=== PATIENT | female | born 1990 | race Two or more races ===

== ENCOUNTER 2016-12-10 14:17 | Emergency (ER) | payer MEDICAID ==
[2016-12-10] MEDS ORDERED: NS 1,000 ML IV ONE (14:26)
--- NOTE | 2016-12-10 14:31 | EDPHY ---
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 She states that she is feeling dizzy. She denies pain. Denies intoxicants use. Denies headache. Denies chest pain. No recent illnesses. No trauma. PRIMARY CARE PROVIDER:Jerald Sotelo REVIEW OF SYSTEMS: A ten point review of systems was performed and is negative with the exception of the items mentioned in the HPI PAST MEDICAL & SURGICAL HISTORY: No pertinent medical or surgical history SOCIAL HISTORY:denies intoxicants use, nonsmoker PHYSICAL EXAM (Prior to examination, patient consented to physical exam, hands were washed and my usual and customary physical exam procedures followed) 1) GENERAL: Well-developed, well-nourished, slow to respond, oriented to person place time. Staring at the floor. Appears to be in no acute distress. 2) HEAD: Normocephalic, atraumatic 3) HEENT: Pupils equal, round, reactive to light bilaterally. Sclera anicteric. No raccoon eyes. No Vines sign. Nasopharynx, oropharynx, clear, no lesions. No rhinorrhea. No otorrhea. Ears bilaterally with normal tympanic membranes. 4) NECK: Full range of motion, no meningeal signs. 5) LUNGS: Clear auscultation bilaterally, no wheezes, no rhonchi, no retractions. 6) HEART: Regular rate and rhythm, no murmur, no heave, no gallop. 7) ABDOMEN: No guarding, no rebound, no focal tenderness, negative McBurney's, negative Valadez's, negative Rovsing's, negative peritoneal sign, 8) MUSCULOSKELETAL: Moving all extremities, no focal areas of tenderness, no obvious trauma. No peripheral edema or discoloration. 9) BACK: No CVA tenderness, no midline vertebral tenderness, no fluctuance, no step-off, no obvious trauma, no visual or palpable abnormality. 10) SKIN: No rash, no petechiae. 11) Psychiatric: Patient is oriented X 3, there is no agitation. DIFFERENTIAL DIAGNOSIS: In no particular order including but not limited to hypoglycemia, infectious process, electrolyte abnormality, head injury and intoxicants. Constitutional: Initial Vital Signs Temperature (C) 36.7 C 12/10/16 14:41 Heart Rate 136 H 12/10/16 14:41 Respiratory Rate 14 12/10/16 14:41 Blood Pressure 146/65 H 12/10/16 14:41 O2 Sat (%) 95 12/10/16 14:41 O2 Delivery Mode Room Air Allergies/Adverse Reactions: No Known Allergies Allergy (Unverified 12/10/16 14:43) Home Medications: Medication Instructions Recorded NK [No Known Home Meds] 12/10/16 Medical Decision Making - Diagnostics Imaging Results: Imaging Impressions Head CT 12/10/16 15:23 Impression: No acute intracranial findings. Findings discussed with [facility] 12/10/2016 at 16:06. ED Course/Re-evaluation: 3:23 p.m.: Patient's mother is at bedside and states that the patient is definitely exhibiting altered mental status. Mother explains at this time that the 2 of them work together and live together. No history of drug use, no unusual ingestion today. I spoke with the patient further and she denies illicit drug use. Discussed with Dr Oconnell in ER. Will obtain CT imaging due to altered mental status, continued tachycardia. 4:04 p.m.: Re-evaluation, discussed her positive toxicology screen positive for marijuana. She is more alert at this time although still slow to respond. She denies intentionally ingesting marijuana product. 4:44 p.m.: Patient informed the nurse that she remembers eating some food from a co-worker "who uses a lot of marijuana" and suspects that there may have been some cannabis in the food 5:30 p.m.: Re-evaluation, sleeping, easily woken, mentating clearly, answering questions appropriately. Heart rate in the 80s. Ambulating with stable steady gait without assistance. She would like to be discharged. She is awake alert oriented person place time events, clear speech pattern, stable steady gait. I think the patient can be discharged. - Data Points Laboratory Results: Laboratory Results 12/10/16 14:25 12/10/16 14:25 12/10/16 12/10/16 12/10/16 15:40 14:25 14:25 WBC RBC Hgb Hct MCV MCH MCHC RDW Plt Count MPV Neut % (Auto) Lymph % (Auto) [place] % (Auto) Eos % (Auto) Baso % (Auto) Nucleat RBC Rel Count Absolute Neuts (auto) Absolute Lymphs (auto) Absolute Monos (auto) Absolute Eos (auto) Absolute Basos (auto) Absolute Nucleated RBC Immature Gran % Immature Gran # Carboxyhemoglobin 1.3 % % (0-1.5) Sodium Potassium Chloride Carbon Dioxide Anion Gap BUN Creatinine Estimated GFR Glucose Calcium Total Bilirubin Conjugated Bilirubin Unconjugated Bilirubin AST ALT Alkaline Phosphatase Total Protein Albumin Beta HCG, Qual NEGATIVE Salicylates Urine Opiates Screen NEGATIVE (NEGATIVE) Acetaminophen Urine Barbiturates NEGATIVE (NEGATIVE) Ur Phencyclidine Scrn NEGATIVE (NEGATIVE) Ur Amphetamine Screen NEGATIVE (NEGATIVE) U Benzodiazepines Scrn NEGATIVE (NEGATIVE) Urine Cocaine Screen NEGATIVE (NEGATIVE) U Marijuana (THC) Screen NON-NEGATIVE H (NEGATIVE) Ethyl Alcohol 12/10/16 12/10/16 14:25 14:25 WBC 8.01 10^3/uL 10^3/uL (3.80-9.50) RBC 4.68 10^6/uL 10^6/uL (4.18-5.33) Hgb 11.0 g/dL L g/dL (12.6-16.3) Hct 35.8 % L % (38.0-47.0) MCV 76.5 fL L fL (81.5-99.8) MCH 23.5 pg L pg (27.9-34.1) MCHC 30.7 g/dL L g/dL (32.4-36.7) RDW 16.0 % H % (11.5-15.2) Plt Count 291 10^3/uL 10^3/uL (150-400) MPV 10.1 fL fL (8.7-11.7) Neut % (Auto) 42.7 % % (39.3-74.2) Lymph % (Auto) 47.6 % H % (15.0-45.0) [place] % (Auto) 5.9 % % (4.5-13.0) Eos % (Auto) 3.0 % % (0.6-7.6) Baso % (Auto) 0.7 % % (0.3-1.7) Nucleat RBC Rel Count 0.0 % % (0.0-0.2) Absolute Neuts (auto) 3.42 10^3/uL 10^3/uL (1.70-6.50) Absolute Lymphs (auto) 3.81 10^3/uL H 10^3/uL (1.00-3.00) Absolute Monos (auto) 0.47 10^3/uL 10^3/uL (0.30-0.80) Absolute Eos (auto) 0.24 10^3/uL 10^3/uL (0.03-0.40) Absolute Basos (auto) 0.06 10^3/uL 10^3/uL (0.02-0.10) Absolute Nucleated RBC 0.00 10^3/uL 10^3/uL (0-0.01) Immature Gran % 0.1 % % (0.0-1.1) Immature Gran # 0.01 10^3/uL 10^3/uL (0.00-0.10) Carboxyhemoglobin Sodium 142 mEq/L mEq/L (134-144) Potassium 3.5 mEq/L mEq/L (3.5-5.2) Chloride 105 mEq/L mEq/L (97-110) Carbon Dioxide 20 mEq/l L mEq/l (22-31) Anion Gap 17 mEq/L H mEq/L (8-16) BUN 18 mg/dL mg/dL (7-23) Creatinine 0.9 mg/dL mg/dL (0.6-1.0) Estimated GFR > 60 Glucose 118 mg/dL H mg/dL (70-100) Calcium 9.6 mg/dL mg/dL (8.5-10.4) Total Bilirubin 0.6 mg/dL mg/dL (0.1-1.4) Conjugated Bilirubin 0.3 mg/dL mg/dL (0.0-0.5) Unconjugated Bilirubin 0.3 mg/dL mg/dL (0.0-1.1) AST 25 IU/L IU/L (14-46) ALT 36 IU/L IU/L (9-52) Alkaline Phosphatase 41 IU/L IU/L (38-126) Total Protein 8.3 g/dL H g/dL (6.3-8.2) Albumin 4.6 g/dL g/dL (3.5-5.0) Beta HCG, Qual Salicylates < 1.0 mg/dL L mg/dL (2.0-20.0) Urine Opiates Screen Acetaminophen < 10 mcg/mL L mcg/mL (10-30) Urine Barbiturates Ur Phencyclidine Scrn Ur Amphetamine Screen U Benzodiazepines Scrn Urine Cocaine Screen U Marijuana (THC) Screen Ethyl Alcohol < 10 mg/dL mg/dL (0-10) Medications Given: Discontinued Medications Sodium Chloride (Ns) 1,000 mls @ 0 mls/hr IV ONCE ONE PRN Reason: Wide Open Stop: 12/10/16 14:27 Last Admin: 12/10/16 14:56 Dose: 1,000 mls Sodium Chloride (Ns) 2,000 mls @ 0 mls/hr IV ONCE ONE PRN Reason: Wide Open Stop: 12/10/16 14:39 Last Admin: 12/10/16 14:56 Dose: 2,000 mls Departure - Departure Disposition: Home, Routine, Self-Care Clinical Impression: Marijuana use Condition: Fair Instructions: Cannabis Abuse (ED) Additional Instructions: Please be cautious with cannabis containing products in the future Referrals: [facility],. [Clinic] - 1-2 days without fail
--- NOTE | 2016-12-10 14:33 | CPEKG ---
Heart Rate: 116 RR Interval: 517 P-R Interval: 136 QRSD Interval: 76 QT Interval: 324 QTC Interval: 451 P [place]: 34 QRS [place]: 27 T Wave [place]: -48 EKG Severity - OTHERWISE NORMAL ECG - EKG Impression: SINUS TACHYCARDIA Electronically Signed By: Jairon Heard 12-Dec-2016 06:37:11
[2016-12-10] MEDS ORDERED: NS 2,000 ML IV ONE (14:38)
[2016-12-10 14:41] LABS: % IMMATURE GRANULYOCYTES 0.1 % (0.0-1.1); ABSOLUTE IMMATURE GRANULOCYTES 0.01 10^3/uL (0.00-0.10); ADD DIFF? NO; ADD MORPH? NO; ADD SCAN? NO; ATYPICAL LYMPHOCYTE FLAG 10 (0-99); FRAGMENT RBC FLAG 0 (0-99); HEMATOCRIT 35.8 % (38.0-47.0); LEFT SHIFT FLG 0 (0-99); LIPEMIA HEMOLYSIS FLAG 80 (0-99); MEAN CELL HEMOGLOBIN 23.5 pg (27.9-34.1); MEAN CELL HEMOGLOBIN CONCENTR. 30.7 g/dL (32.4-36.7); MEAN CELL VOLUME 76.5 fL (81.5-99.8); MEAN PLATELET VOLUME 10.1 fL (8.7-11.7); PLATELET CLUMPS FLAG 0 (0-99); PLATELET COUNT 291 10^3/uL (150-400); RED BLOOD CELL COUNT 4.68 10^6/uL (4.18-5.33)
[2016-12-10 14:55] LABS: ALANINE AMINOTRANSFERASE 36 IU/L (9-52); ALBUMIN 4.6 g/dL (3.5-5.0); ALKALINE PHOSPHATASE 41 IU/L (38-126); ANION GAP 17 mEq/L (8-16); ASPARTATE AMINOTRANSFERASE 25 IU/L (14-46); BILIRUBIN,TOTAL 0.6 mg/dL (0.1-1.4); BILIRUBIN-CONJUGATED 0.3 mg/dL (0.0-0.5); BILIRUBIN-UNCONJUGATED 0.3 mg/dL (0.0-1.1); CALCIUM 9.6 mg/dL (8.5-10.4); CARBON DIOXIDE 20 mEq/l (22-31); CHLORIDE 105 mEq/L (97-110); CREATININE 0.9 mg/dL (0.6-1.0); ETHANOL SERUM < 10 mg/dL (0-10); GLOMERULAR FILTRATION RATE > 60; GLUCOSE 118 mg/dL (70-100); POTASSIUM 3.5 mEq/L (3.5-5.2); SALICYLATE < 1.0 mg/dL (2.0-20.0); SODIUM 142 mEq/L (134-144); TOTAL PROTEIN 8.3 g/dL (6.3-8.2)
[2016-12-10 16:24] VITALS: RESP 16; O2SAT 98
[2016-12-10 17:45] VITALS: BP 128/76; PULSE 89; TEMP 97.7
== END 2016-12-10 17:44 | disposition home or self-care (01) ==
DX: F12.90 Cannabis use, unspecified, uncomplicated (principal)
CPT/HCPCS: 80305; G0480